=== PATIENT | female | born 1950 | race Caucasian/White ===

== ENCOUNTER 2018-08-14 03:48 | Inpatient (IN) | payer MEDICARE ==
[~2018-08-14] VITALS: Ht 157.5 cm; Wt 63.5 kg
[2018-08-14] MEDS ORDERED: cloNIDine HCL 0.1 MG TAB ONE (03:58)
[2018-08-14] MEDS ORDERED: cloNIDine HCL 0.1 MG TAB PO ONE (04:00)
[2018-08-14] MEDS ORDERED: SODIUM CHLORIDE 0.9% 1,000 ML IV ONE ×2 (07:36)
[2018-08-14] MEDS ORDERED: KETOROLAC TROMETH 30 MG/ML 1ML VIAL IV ONE (07:45)
[2018-08-14 08:05] LABS: Basophils # (auto) 0.1 uL; Basophils % (auto) 0.7 % (0.0-2.0); Eosinophils # (auto) 0 uL; Eosinophils % (auto) 0.1 % (0.0-7.0); Lymphocytes # (auto) 0.9 uL; Mean Corpuscular Volume 77.6 fL (80.0-100.0); Neutrophils % (auto) 85.2 % (37.0-80.0)
[2018-08-14 08:08] LABS: Hematocrit 37.8 % (36.0-46.0); Hemoglobin 12.1 g/dL (12.2-16.2); Mean Corpuscular Hemoglobin 24.8 pg (28.0-32.0); Monocytes # (auto) 0.3 uL; Neutrophils # (auto) 7.4 uL; Nucleated Red Blood Cells % 0.1 %; Platelet Count (auto) 331 10^3/uL (140-450); Red Blood Cells 4.88 10^6/uL (4.0-5.20); White Blood Cell 8.7 10^3/uL (4.4-10.8)
[2018-08-14 08:12] LABS: Red Cell Distribution Width 23.2 % (11.8-14.3)
[2018-08-14 08:15] LABS: Albumin 3.4 g/dL (3.4-5.0); BUN/Creatinine Ratio 20.2; Calcium 8.7 mg/dL (8.5-10.1); Potassium 3.9 mmol/L (3.5-5.1)
[2018-08-14 08:17] LABS: Bilirubin, Total 0.3 mg/dL (0.2-1.0)
[2018-08-14 08:28] LABS: Urine Bacteria NONE SEEN /hpf (None Seen); Urine Blood 3+ /uL (Negative); Urine Mucus FEW (None Seen); Urine Specific Gravity 1.012 (1.001-1.035); Urine WBC 18 /hpf (0 - 5)
[2018-08-14] MEDS ORDERED: SODIUM CHLORIDE 0.9% 1,000 ML IV SCH (08:52)
[2018-08-14] MEDS ORDERED: NITROGLYCERIN 0.4 MG SL TAB SL PRN (09:00)
[2018-08-14] MEDS ORDERED: ACETAMINOPHEN 500 MG TAB PO PRN (09:00)
[2018-08-14] MEDS ORDERED: MORPHINE SULFATE 4 MG/ML SYR/VIAL IV PRN ×2 (09:00)
[2018-08-14] MEDS ORDERED: LORazepam 0.5 MG TAB PO PRN (09:00)
[2018-08-14] MEDS ORDERED: ONDANSETRON HCL 4 MG/2 ML VIAL IV PRN (09:00)
[2018-08-14] MEDS ORDERED: cefTRIAXone 1GM/10ml IVPUSH 10 ML IV SCH (09:00)
[2018-08-14] MEDS ORDERED: DEXTROSE (50%) 50ML SYRG IV PRN (09:00)
[2018-08-14] MEDS ORDERED: TEMAZEPAM 15 MG CAP PO PRN (09:00)
[2018-08-14] MEDS ORDERED: HYDROcodone-ACET 5/325MG TAB PO PRN (09:00)
[2018-08-14 09:29] VITALS: BP 121/58
[2018-08-14] MEDS ORDERED: PANTOPRAZOLE 40 MG TAB PO SCH (10:00)
[2018-08-14] MEDS ORDERED: ACCU-CHEK COMFORT CURVE STRIP VI SCH (12:00)
== END 2018-08-14 15:10 | disposition left against medical advice (07) | DRG 694 ==
LOC: ER 03:51 → TELE 03:52 → TELE-EAST 10:21
PROVIDERS: ADMIT Internal Medicine; ATTEND Internal Medicine
DX: N13.2 Hydronephrosis with renal and ureteral calculous obstruction (principal); K57.30 Diverticulosis of large intestine without perforation or abscess without bleeding; K76.89 Other specified diseases of liver; N28.1 Cyst of kidney, acquired; R16.0 Hepatomegaly, not elsewhere classified; R73.9 Hyperglycemia, unspecified
CPT/HCPCS: 36415; 71045; 74150; 74176; 76775; 80053; 81001; 83036; 85025; 96361; 96374; J0696; J1885

== ENCOUNTER 2019-11-24 23:42 | Emergency (ER) | payer MEDICARE, OTHER ==
[~2019-11-24] VITALS: Ht 157.5 cm; Wt 61.7 kg
[2019-11-25] MEDS ORDERED: MORPHINE SULFATE 4 MG/ML SYR/VIAL IV ONE (01:15)
[2019-11-25] MEDS ORDERED: ONDANSETRON HCL 4 MG/2 ML VIAL IV ONE (01:15)
[2019-11-25 01:16] LABS: Basophils # (auto) 0.1 uL; Basophils % (auto) 0.8 % (0.0-2.0); Eosinophils # (auto) 0 uL; Eosinophils % (auto) 0.3 % (0.0-7.0); Hematocrit 47.4 % (36.0-46.0); Hemoglobin 15.6 g/dL (12.2-16.2); Lymphocytes # (auto) 1.5 uL; Lymphocytes % (auto) 12.8 % (10.0-50.0); Mean Corpuscular Hemoglobin 27.4 pg (28.0-32.0); Mean Corpuscular Hgb Conc. 32.9 g/dL (32.0-36.0); Mean Corpuscular Volume 83.2 fL (80.0-100.0); Monocytes # (auto) 0.6 uL; Monocytes % (auto) 4.7 % (0.0-12.0); Neutrophils # (auto) 9.7 uL; Neutrophils % (auto) 81.4 % (37.0-80.0); Platelet Count (auto) 243 10^3/uL (140-450); Red Blood Cells 5.69 10^6/uL (4.0-5.20); Red Cell Distribution Width 14.6 % (11.8-14.3); White Blood Cell 11.9 10^3/uL (4.4-10.8)
[2019-11-25 01:24] LABS: Urine Bacteria FEW /hpf (None Seen); Urine Blood 1+ /uL (Negative); Urine Hyaline Cast FEW /lpf (0 - 2); Urine Mucus FEW (None Seen); Urine Specific Gravity 1.013 (1.001-1.035); Urine WBC 9 /hpf (0 - 5)
[2019-11-25 01:34] LABS: Albumin 3.9 g/dL (3.4-5.0); BUN/Creatinine Ratio 23.4; Calcium 9.5 mg/dL (8.5-10.1); Potassium 3.5 mmol/L (3.5-5.1)
[2019-11-25 01:37] LABS: Bilirubin, Total 0.3 mg/dL (0.2-1.0); Total Protein 7.7 g/dL (6.4-8.2)
[2019-11-25 02:30] VITALS: BP 149/60
[2019-11-25] MEDS ORDERED: KETOROLAC TROMETH 30 MG/ML 1ML VIAL IV ONE (02:45)
== END 2019-11-25 03:47 | disposition home or self-care (01) ==
LOC: ER 23:44
DX: N20.0 Calculus of kidney (principal); R11.2 Nausea with vomiting, unspecified
CPT/HCPCS: 36415; 74176; 80053; 81001; 83690; 85025; 93005; 96374; 96375; 99284; J1885; J2270; J2405

== ENCOUNTER 2024-04-27 21:25 | Emergency (ER) | payer OTHER ==
[~2024-04-27] VITALS: Ht 157.5 cm; Wt 61.8 kg
[2024-04-27 22:18] LABS: Basophils # (auto) 0.1 10 ^3/uL (0-0.2); Basophils % (auto) 1.3 % (0.0-2.0); Eosinophils # (auto) 0.1 10 ^3/uL (0-0.8); Eosinophils % (auto) 0.7 % (0.0-7.0); Hematocrit 49.1 % (36.0-46.0); Hemoglobin 16.3 g/dL (12.2-16.2); Lymphocytes # (auto) 1.9 10 ^3/uL (0.4-5.4); Lymphocytes % (auto) 26.4 % (10.0-50.0); Mean Corpuscular Hemoglobin 26.8 pg (28.0-32.0); Mean Corpuscular Hgb Conc. 33.3 g/dL (32.0-36.0); Mean Corpuscular Volume 80.4 fL (80.0-100.0); Monocytes # (auto) 0.5 10 ^3/uL (0-1.3); Monocytes % (auto) 7.3 % (0.0-12.0); Neutrophils # (auto) 4.7 10 ^3/uL (1.6-8.6); Neutrophils % (auto) 64.3 % (37.0-80.0); Nucleated Red Blood Cells % 0.5 %; Red Cell Distribution Width 15.4 % (11.8-14.3); White Blood Cell 7.3 10^3/uL (4.4-10.8)
[2024-04-27 22:24] LABS: Chloride 107 mmol/L (98-107); Potassium 3.8 mmol/L (3.5-5.1); Sodium 136 mmol/L (136-145)
[2024-04-27 22:25] LABS: Anion Gap 5 (5-15); Calcium 10.2 mg/dL (8.5-10.1); Carbon Dioxide 24 mmol/L (20-30)
[2024-04-27 22:30] LABS: BUN/Creatinine Ratio 21.9 (10.0-20.0); Blood Urea Nitrogen 16 mg/dL (9-23); Glucose 122 mg/dL (74-106)
[2024-04-27 22:31] LABS: Magnesium 2.2 mg/dL (1.6-2.6)
[2024-04-28 03:29] VITALS: BP 173/108; PULSE 89; RESP 16; TEMP 97.6; O2SAT 97
[2024-04-28] MEDS: cloNIDine HCL 0.1 MG TAB PO ONE (03:31)
[2024-04-28] MEDS: ASPirin 81 mg TAB PO ONE (03:32)
== END 2024-04-28 03:37 | disposition short-term general hospital (02) ==
LOC: ER 21:25
DX: R27.0 Ataxia, unspecified (principal); F17.210 Nicotine dependence, cigarettes, uncomplicated; Z87.442 Personal history of urinary calculi; Z98.890 Other specified postprocedural states
CPT/HCPCS: 36415; 70450; 80048; 83735; 85025

== ENCOUNTER 2024-05-01 15:40 | Emergency (ER) | payer OTHER ==
[~2024-05-01] VITALS: Ht 157.5 cm; Wt 61.8 kg
[2024-05-01] MEDS: amLODIPine BESYLATE 5 MG TAB PO ONE (16:33)
[2024-05-01 18:15] VITALS: PULSE 89; RESP 20; O2SAT 99
[2024-05-01] MEDS: ONDANSETRON ODT 4 MG TAB PO ONE (19:05)
[2024-05-01 19:48] LABS: Calcium 10.8 mg/dL (8.5-10.1); Carbon Dioxide 23 mmol/L (20-30); Chloride 107 mmol/L (98-107); Potassium 3.6 mmol/L (3.5-5.1)
[2024-05-01 19:51] LABS: BUN/Creatinine Ratio 27.3 (10.0-20.0); Blood Urea Nitrogen 24 mg/dL (9-23); Glucose 97 mg/dL (74-106)
[2024-05-01 19:52] LABS: Anion Gap 9 (5-15); Sodium 139 mmol/L (136-145)
[2024-05-01 20:17] LABS: Basophils # (auto) 0.1 10 ^3/uL (0-0.2); Basophils % (auto) 1.2 % (0.0-2.0); Eosinophils # (auto) 0.1 10 ^3/uL (0-0.8); Mean Corpuscular Hemoglobin 26.7 pg (28.0-32.0); Nucleated Red Blood Cells % 0.2 %
[2024-05-01 20:18] LABS: Eosinophils % (auto) 0.6 % (0.0-7.0); Hematocrit 47.6 % (36.0-46.0); Hemoglobin 15.8 g/dL (12.2-16.2); Lymphocytes # (auto) 3.1 10 ^3/uL (0.4-5.4); Mean Corpuscular Hgb Conc. 33.3 g/dL (32.0-36.0); Mean Corpuscular Volume 80.3 fL (80.0-100.0); Monocytes # (auto) 0.5 10 ^3/uL (0-1.3); Monocytes % (auto) 6.6 % (0.0-12.0); Neutrophils # (auto) 4.4 10 ^3/uL (1.6-8.6); Neutrophils % (auto) 53.6 % (37.0-80.0); Red Blood Cells 5.93 10^6/uL (4.0-5.20); Red Cell Distribution Width 15.6 % (11.8-14.3); White Blood Cell 8.1 10^3/uL (4.4-10.8)
[2024-05-01 20:37] VITALS: BP 129/65; RESP 16; TEMP 98.1; O2SAT 95
[2024-05-01] MEDS ORDERED: LOSA-534 PO (20:42)
[2024-05-01 21:02] VITALS: PULSE 93
== END 2024-05-01 20:53 | disposition home or self-care (01) ==
LOC: ER 15:40
DX: I10 Essential (primary) hypertension (principal); R42 Dizziness and giddiness; F17.210 Nicotine dependence, cigarettes, uncomplicated; Z86.73 Personal history of transient ischemic attack (TIA), and cerebral infarction without residual deficits; Z87.442 Personal history of urinary calculi
CPT/HCPCS: 36415; 70450; 80048; 84484; 93005; 99284; Q0162

== ENCOUNTER 2024-10-23 19:44 | Emergency (ER) | payer OTHER ==
[~2024-10-23] VITALS: Ht 157.5 cm; Wt 63.9 kg
[~2024-10-23 19:44] MED LIST: LOSA-534 PO
[2024-10-23 20:00] VITALS: PULSE 101; RESP 18; O2SAT 96
--- NOTE | 2024-10-23 20:23 | ED.PDOC ---
HPI Comments HPI: Poor Historian. Three day history of intermittent episodes of hypertension. Systolic blood pressure is sometimes greater Than 200. Patient states compliance with the medications. Patient complains of some mild generalized weakness. VITALS: Temp: 98.3 F RR: 18 02 sat : 96 % on room air HR: 101 BP: 196/99 PMH: hypertension, hyperlipidemia, Nephrolithiasis, CVA 2023 Liver cyst and hepatomegaly PSH: breast implants, Ureteral stent Social history: endorses tobacco use, denies ETOH use, denies drug use Medications: Cozaar, aspirin Allergies: nkda REVIEW OF SYSTEMS: CONSTITUTIONAL: Denies acute: fever, diaphoresis, chills, HEAD: Denies acute: headache, photophobia Eyes: Denies acute: Double vision, vision loss, eye pain, eye discharge. EARS: Denies acute: tinnitus, hearing loss, ear discharge, ear pain, THROAT: Denies acute: sore throat, swelling, difficulty swallowing , pain with swallowing, change in voice. NECK: Denies acute: neck pain, neck swelling, stiff neck. HEART: Denies acute : chest pain, palpitations, LUNGS: Denies acute: SOB, wheezing, cough, hemoptysis ABDOMEN: Denies acute: abdominal pain, Nausea, Vomiting, diarrhea, melena , hematemesis, hematochezia SKIN: Denies acute: rash, redness, lesions, itchiness. EXTREMITIES: Denies acute: calf pain, numbness, tingling, weakness, denies pain in extremity. Denies acute: Low back pain. Neuro: Denies acute: focal neurological deficit, motor or sensory focal neurological deficit, tremors, seizure like activity, confusion, dizziness, change in mental status, loss of bowel or bladder function, cauda equina like symptoms. : Denies acute: dysuria, hematuria, flank pain, increase in urinary frequency. PSYCH: Denies acute: hallucination, suicidal ideation, homicidal ideation. FEMALE: Denies acute: abnormal vaginal bleeding, foul odor, unusual discharge. PHYSICAL EXAM: General: no acute distress, awake and alert. Head: normocephalic, atraumatic. Neck: supple, trachea is midline, no swelling. Throat: Normal phonation. Eyes:, no erythema, no purulent discharge, no proptosis, no icterus. Heart: regular rate, regular rhythm, no significant murmur appreciated. Lungs: no apparent respiratory distress, Able to speak in full sentences. No wheezing, no rhonchi, no crackles. No stridors Clear to auscultation bilaterally. Abdomen: non tender to palpation, non distended, soft, no guarding, no rebound, + bowel sounds. Neuro: Awake, Alert, oriented to name, self, situation, follows commands GCS=15. Speech is normal. Skin: no petechia, no purpura, no cyanosis, non-pale, not jaundice. Lower extremities: --trace bilateral - Pitting edema no deformity, no focal swelling, no calf TTP. Makes eye contact. moves all four extremities. Face: no apparent facial droop. Ambulating in the ED independently. . No nuchal rigidity, Kernig's sign, Brudzinski's sign, no meningeal signs. 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 Was a procedure done?: No X-Ray, Labs, Meds, VS Lab Test 10/23/24 21:40 10/23/24 20:45 Range/Units Troponin I High Sensitivity 4 4 </=34 ng/L White Blood Count 7.2 4.4-10.8 10^3/uL Red Blood Count 5.55 H 4.0-5.20 10^6/uL Hemoglobin 15.0 12.2-16.2 g/dL Hematocrit 45.4 36.0-46.0 % Mean Corpuscular Volume 81.9 80.0-100.0 fL Mean Corpuscular Hemoglobin 27.1 L 28.0-32.0 pg Mean Corpuscular Hemoglobin Concent 33.1 32.0-36.0 g/dL Red Cell Distribution Width 14.9 H 11.8-14.3 % Platelet Count 272 140-450 10^3/uL Mean Platelet Volume 8.2 6.9-10.8 fL Neutrophils (%) (Auto) 46.7 37.0-80.0 % Lymphocytes (%) (Auto) 41.8 10.0-50.0 % Monocytes (%) (Auto) 8.3 0.0-12.0 % Eosinophils (%) (Auto) 2.4 0.0-7.0 % Basophils (%) (Auto) 0.8 0.0-2.0 % Neutrophils # (Auto) 3.4 1.6-8.6 10 ^3/uL Lymphocytes # (Auto) 3.0 0.4-5.4 10 ^3/uL Monocytes # (Auto) 0.6 0-1.3 10 ^3/uL Eosinophils # (Auto) 0.2 0-0.8 10 ^3/uL Basophils # (Auto) 0.1 0-0.2 10 ^3/uL Nucleated Red Blood Cells 0.1 % Sodium Level 143 136-145 mmol/L Potassium Level 3.8 3.5-5.1 mmol/L Chloride Level 108 H 98-107 mmol/L Carbon Dioxide Level 26 20-31 mmol/L Anion Gap 9 5-15 Blood Urea Nitrogen 23 9-23 mg/dL Creatinine 0.84 0.550-1.02 mg/dL Glomerular Filtration Rate Calc 73 >90 mL/min BUN/Creatinine Ratio 27.4 H 10.0-20.0 Serum Glucose 97 74-106 mg/dL Calcium Level 10.4 8.7-10.4 mg/dL Total Bilirubin 0.4 0.2-1.0 mg/dL Aspartate Amino Transferase (AST) 27 13-40 U/L Alanine Aminotransferase (ALT) 38 7-40 U/L Alkaline Phosphatase 154 H 46-116 U/L Total Protein 7.2 5.7-8.2 g/dL Albumin 4.6 3.2-4.8 g/dL [address] [address] Ph: [phone] DIAGNOSTIC IMAGING Diagnostic Imaging Report : [id number] Signed PATIENT: KINSEY GREEN ACCT: [id number] UNIT: [id number] : 1950 LOC: ER ROOM / BED: / AGE / SEX: 74 / F ADM STATUS: REG ER SERVICE 03 ORDERING PHYSICIAN: LINA MILLARD DO PROCEDURE(s): CXRP - CHEST PORTABLE REASON: HTN ORDER NUMBER(s): [id number], ACCESSION NUMBER(s): [id number] CHEST RADIOGRAPH Indication: HTN Technique: Single frontal view of the chest was obtained COMPARISON: None FINDINGS: Lines and Tubes: None Lungs: Clear Pleura: No effusion. No pneumothorax. Cardiomediastinal contours: Unremarkable Bones: Unremarkable Bilateral breast prosthesis noted. IMPRESSION: 1. No acute disease. ATED BY: MAIK PEREYRA MD DICTATED DATE/TIME: 10/23/242033 SIGNED BY: MAIK PEREYRA MD SIGNED DATE/TIME: 10/23/242033 CC: [place] [id number] Ph: [phone] DIAGNOSTIC IMAGING Diagnostic Imaging Report : [id number] Signed PATIENT: KINSEY GREEN ACCT: [id number] UNIT: [id number] : 1950 LOC: ER ROOM / BED: / AGE / SEX: 74 / F ADM STATUS: REG ER SERVICE 12 ORDERING PHYSICIAN: LINA MILLARD DO PROCEDURE(s): HWOCT - HEAD WITHOUT CONTRAST REASON: HTN ORDER NUMBER(s): [id number], ACCESSION NUMBER(s): [id number] EXAM: CT HEAD WITHOUT CONTRAST INDICATION: HTN TECHNIQUE: CT of the head without intravenous contrast. Radiation Dose : 1. Head: CT Dose: CTDI volume is 55 mGy. Dose-length product is 966 mGy*cm The dose indicators for CT are the volume Computed Tomography (CT) Dose Index (CTDIvol) and the Dose Length Product (DLP), and are measured in units of mGy and mGy-cm, respectively. These indicators are not patient dose, but values generated from the CT scanner acquisition factors. The report includes radiation exposure data for exposures received during this examination. COMPARISON: CT HEAD WITHOUT CONTRAST on DOS: 05/01/24, CT HEAD WITHOUT CONTRAST on DOS: 04/27/24, CT ABD PELVIS WO CONTRAST on DOS: 11/25/19 FINDINGS: There is no evidence of acute intracranial hemorrhage, extra-axial collection, mass effect, midline shift, herniation or hydrocephalus. The ventricles, sulci and cisterns are age appropriate. The martinez-white differentiation is intact. Patchy periventricular and subcortical white matter hypoattenuation is nonspecific but may be related to small vessel ischemic disease. Extensive mucosal thickening of the left maxillary sinus The surrounding soft tissues and osseous structures are unremarkable. IMPRESSION: 1. No acute intracranial abnormality. Radiation optimization: All CT scans at this facility use at least one of these dose optimization techniques: automated exposure control mA and/or kV adjustment per patient size (includes targeted exams where dose is matched to clinical indication) or iterative reconstruction. ATED BY: MAIK PEREYRA MD DICTATED DATE/TIME: 10/23/242128 SIGNED BY: MAIK PEREYRA MD SIGNED DATE/TIME: 10/23/242128 CC: Patient Education/Counseling: Diagnosis, Treatment Family Education/Counseling: No Family Present Comments MDM: Patient presented with the above HPI.----- high blood pressure--- workup was initiated. patient was found with the above mentioned diagnosis. the following medications were ordered: 0.4 nitro the following tests were ordered: drug screen, orthostatics, EKG x 1, chest x- ray, UA, troponin x 2 , lactic acid, lipase, magnesium, CBC, CMP, beta HCG Patient ED course and VS have been stabilized. Patient has been reassessed in the ED and remained in a stable condition. Patient has been observed in the ED adequate length of time to insure improvement/stability. Escalation of care considered: Consideration of escalation to observation or admission. patient was ADMITTED to the medicine team for further evaluation and treatment of their presentation. patient was DISCHARGED after further evaluation and treatment of their pr esentation. All the reports of any imaging studies that were ordered by myself were reviewed by myself. Departure 1 Departure Time of Disposition: 22:45 Impression: Primary Impression: Hypertension Disposition: HOME / SELF CARE / HOMELESS Condition: Stable Additional Instructions: Additional discharge instructions: You MUST follow-up with your primary care/family doctor in 1 to 2 days. If you are unable to see your primary care/family doctor, please return to our emergency room for re-assessment and re-evaluation in 1 to 2 days. Return to the emergency room here in our facility or to the nearest ER [facility] if your symptoms change or worsen. CONSULTATIONS: you MUST Follow-up for consultation as soon as possible with: physician cardiology in 1-2 days. Please call for appointment. You MUST call the consultants office yourself to make an appointment. You may need to arrange that through your insurance and/or your primary/family doctor. If you are unable to see the makeup sales consultant in 1 to 2 days, you must return to our emergency room (or any other ER of your choice) for re-assessment and re- evaluation. Adequate fluid hydration. Salt restrictions. Monitoring blood pressure at home at least 3 times a day. Below is a copy of your radiological report for follow up: [place] [id number] Ph: [phone] DIAGNOSTIC IMAGING Diagnostic Imaging Report : [id number] Signed PATIENT: KINSEY GREEN ACCT: [id number] UNIT: [id number] : 1950 LOC: ER ROOM / BED: / AGE / SEX: 74 / F ADM STATUS: REG ER SERVICE 12 ORDERING PHYSICIAN: LINA MILLARD DO PROCEDURE(s): HWOCT - HEAD WITHOUT CONTRAST REASON: HTN ORDER NUMBER(s): [id number], ACCESSION NUMBER(s): [id number] EXAM: CT HEAD WITHOUT CONTRAST INDICATION: HTN TECHNIQUE: CT of the head without intravenous contrast. Radiation Dose : 1. Head: CT Dose: CTDI volume is 55 mGy. Dose-length product is 966 mGy*cm The dose indicators for CT are the volume Computed Tomography (CT) Dose Index (CTDIvol) and the Dose Length Product (DLP), and are measured in units of mGy and mGy-cm, respectively. These indicators are not patient dose, but values generated from the CT scanner acquisition factors. The report includes radiation exposure data for exposures received during this examination. COMPARISON: CT HEAD WITHOUT CONTRAST on DOS: 05/01/24, CT HEAD WITHOUT CONTRAST on DOS: 04/27/24, CT ABD PELVIS WO CONTRAST on DOS: 11/25/19 FINDINGS: There is no evidence of acute intracranial hemorrhage, extra-axial collection, mass effect, midline shift, herniation or hydrocephalus. The ventricles, sulci and cisterns are age appropriate. The martinez-white differentiation is intact. Patchy periventricular and subcortical white matter hypoattenuation is nonspecific but may be related to small vessel ischemic disease. Extensive mucosal thickening of the left maxillary sinus The surrounding soft tissues and osseous structures are unremarkable. IMPRESSION: 1. No acute intracranial abnormality. Radiation optimization: All CT scans at this facility use at least one of these dose optimization techniques: automated exposure control mA and/or kV adjustment per patient size (includes targeted exams where dose is matched to clinical indication) or iterative reconstruction. ATED BY: MAIK PEREYRA MD DICTATED DATE/TIME: 10/23/242128 SIGNED BY: MAIK PEREYRA MD SIGNED DATE/TIME: 10/23/242128 CC: Discharged With: Self, Relative Heart Score Heart Score: Heart Score Response (Comments) Value History Moderate Suspicious 1 Age >65 2 Risk Factors 1 or 2 risk factors 1 Troponin Normal limit 0 Total 4 I personally scribed for LINA MILLARD DO ([email or web address]) on 10/23/24 at 20:22. Electronically submitted by Kassie Ang ([email or web address]). I personally scribed for LINA MILLARD DO ([email or web address]) on 10/23/24 at 20:55. Electronically submitted by Kassie Ang ([email or web address]). I personally scribed for LINA MILLARD DO ([email or web address]) on 10/23/24 at 21:38. Electronically submitted by Kassie Ang ([email or web address]). I personally scribed for LINA MILLARD DO ([email or web address]) on 10/23/24 at 22:19. Electronically submitted by Kassie Ang ([email or web address]). LINA MILLARD DO Oct 23, 2024 20:22
--- NOTE | 2024-10-23 20:36 | DVH ---
CHEST RADIOGRAPH Indication: HTN Technique: Single frontal view of the chest was obtained COMPARISON: None FINDINGS: Lines and Tubes: None Lungs: Clear Pleura: No effusion. No pneumothorax. Cardiomediastinal contours: Unremarkable Bones: Unremarkable Bilateral breast prosthesis noted. IMPRESSION: 1. No acute disease.
--- NOTE | 2024-10-23 21:32 | DVH ---
EXAM: CT HEAD WITHOUT CONTRAST INDICATION: HTN TECHNIQUE: CT of the head without intravenous contrast. Radiation Dose : 1. Head: CT Dose: CTDI volume is 55 mGy. Dose-length product is 966 mGy*cm The dose indicators for CT are the volume Computed Tomography (CT) Dose Index (CTDIvol) and the Dose Length Product (DLP), and are measured in units of mGy and mGy-cm, respectively. These indicators are not patient dose, but values generated from the CT scanner acquisition factors. The report includes radiation exposure data for exposures received during this examination. COMPARISON: CT HEAD WITHOUT CONTRAST on DOS: 05/01/24, CT HEAD WITHOUT CONTRAST on DOS: 04/27/24, CT AB D PELVIS WO CONTRAST on DOS: 11/25/19 FINDINGS: There is no evidence of acute intracranial hemorrhage, extra-axial collection, mass effect, midline s hift, herniation or hydrocephalus. The ventricles, sulci and cisterns are age appropriate. The martinez-white differentiation is intact. Patchy periventricular and subcortical white matter hypoattenuation is nonspecific but may be related to small vessel ischemic disease. Extensive mucosal thickening of the left maxillary sinus The surrounding soft tissues and osseous structures are unremarkable. IMPRESSION: 1. No acute intracranial abnormality. Radiation optimization: All CT scans at this facility use at least one of these dose optimization mamadou hniques: automated exposure control mA and/or kV adjustment per patient size (includes targeted exam s where dose is matched to clinical indication) or iterative reconstruction.
[2024-10-23 21:47] LABS: Basophils # (auto) 0.1 10 ^3/uL (0-0.2); Eosinophils # (auto) 0.2 10 ^3/uL (0-0.8); Eosinophils % (auto) 2.4 % (0.0-7.0); Monocytes # (auto) 0.6 10 ^3/uL (0-1.3); Neutrophils # (auto) 3.4 10 ^3/uL (1.6-8.6); Neutrophils % (auto) 46.7 % (37.0-80.0); Red Blood Cells 5.55 10^6/uL (4.0-5.20)
[2024-10-23 21:48] LABS: Basophils % (auto) 0.8 % (0.0-2.0); Hematocrit 45.4 % (36.0-46.0); Lymphocytes % (auto) 41.8 % (10.0-50.0); Mean Corpuscular Hemoglobin 27.1 pg (28.0-32.0); Mean Corpuscular Hgb Conc. 33.1 g/dL (32.0-36.0); Mean Corpuscular Volume 81.9 fL (80.0-100.0); Monocytes % (auto) 8.3 % (0.0-12.0); Nucleated Red Blood Cells % 0.1 %; Platelet Count (auto) 272 10^3/uL (140-450); Red Cell Distribution Width 14.9 % (11.8-14.3); White Blood Cell 7.2 10^3/uL (4.4-10.8)
[2024-10-23 21:53] LABS: Alanine Aminotransferase 38 U/L (7-40); Albumin 4.6 g/dL (3.2-4.8); Anion Gap 9 (5-15); Aspartate Aminotransferase 27 U/L (13-40); BUN/Creatinine Ratio 27.4 (10.0-20.0); Bilirubin, Total 0.4 mg/dL (0.2-1.0); Blood Urea Nitrogen 23 mg/dL (9-23); Carbon Dioxide 26 mmol/L (20-31); Glucose 97 mg/dL (74-106); Potassium 3.8 mmol/L (3.5-5.1); Sodium 143 mmol/L (136-145); Total Protein 7.2 g/dL (5.7-8.2)
[2024-10-23 22:08] LABS: Alkaline Phosphatase 154 U/L (46-116); Calcium 10.4 mg/dL (8.7-10.4); Chloride 108 mmol/L (98-107)
[2024-10-23 22:44] VITALS: BP 171/79
[2024-10-23] MEDS: NITROGLYCERIN 0.4 MG SL TAB SL ONE (23:10)
--- NOTE | 2024-10-25 07:40 | ECG ---
[facility] Test Date: 2024-10-23 Test Time: 20:09:22 Pat Name: KINSEY GREEN Department: ER Room: Gender: F Casing Tester: PAMELA : 1950 Requested By: LINA MILLARD Order Number: [id number] Reading MD: Measurements Intervals [place] Rate: 98 P: 81 WV: 153 QRS: 102 QRSD: 73 T: 94 QT: 330 QTc: 422 Interpretive Statements Sinus rhythm Right axis deviation Borderline repolarization abnormality Please click the below link to view image of tracing.
== END 2024-10-23 23:15 | disposition home or self-care (01) ==
LOC: ER 19:44
DX: I10 Essential (primary) hypertension (principal); E78.5 Hyperlipidemia, unspecified; F17.210 Nicotine dependence, cigarettes, uncomplicated; R51.9 Headache, unspecified; Z86.73 Personal history of transient ischemic attack (TIA), and cerebral infarction without residual deficits; Z79.899 Other long term (current) drug therapy; Z98.890 Other specified postprocedural states
CPT/HCPCS: 36415; 70450; 71045; 80053; 84484; 85025; 93005